=== PATIENT | female | born 1985 | race African-American/Black ===

== ENCOUNTER 2016-09-16 17:00 | Emergency (ER) | payer MEDICAID, OTHER ==
[~2016-09-16] VITALS: Ht 165.1 cm; Wt 84.0 kg
[~2016-09-16 17:00] MED LIST: ACET-3161 PO
[2016-09-16 17:08] VITALS: BP 125/82
== END 2016-09-16 22:26 | disposition home or self-care (01) ==
LOC: ER 20:30
DX: S93.492A Sprain of other ligament of left ankle, initial encounter (principal); S93.692A Other sprain of left foot, initial encounter; X58.XXXA Exposure to other specified factors, initial encounter; J45.909 Unspecified asthma, uncomplicated; Y93.72 Activity, wrestling; Y99.8 Other external cause status; Y92.89 Other specified places as the place of occurrence of the external cause
CPT/HCPCS: 73590; 73610; 73630; 81025; 99284

== ENCOUNTER 2018-01-07 19:28 | Emergency (ER) | payer MEDICAID ==
[~2018-01-07] VITALS: Ht 165.1 cm; Wt 79.0 kg
[2018-01-07] MEDS ORDERED: ACETAMINOPHEN WITH CODEINE 300/30MG TABLET PO ONE (20:45)
[2018-01-07 21:02] LABS: CLARITY URINE CLEAR (CLEAR); COLOR URINE YELLOW (YELLOW); KETONES URINE NEGATIVE (NEGATIVE); LEUKOCYTE ESTERASE URINE TRACE (NEGATIVE); NITRITE URINE NEGATIVE (NEGATIVE); OCCULT BLOOD URINE 3+ (NEGATIVE); PROTEIN URINE NEGATIVE (NEGATIVE); SPECIFIC GRAVITY URINE 1.029 (1.005-1.030)
[2018-01-07 21:33] LABS: BASOPHILS % 0.5 % (0.0-2.0); EOSINOPHILS % 0.3 % (0.0-5.0); HEMATOCRIT. 37.6 % (36.0-48.0); HEMOGLOBIN. 12.3 g/dL (12.0-16.0); LYMPHOCYTES % 31.8 % (20.0-50.0); MEAN CORPUSCULAR VOLUME 79.6 fL (81.0-99.0); MEAN PLATELET VOLUME 8.2 fl (7.4-10.4); MONOCYTES % 7.7 % (2.0-8.0); NEUTROPHILS % 59.7 % (40.0-76.0); PLATELET 380 x1000/uL (130-400); RED BLOOD CELL COUNT 4.72 mill/uL (4.2-5.4); RED CELL DISTRIBUTION WIDTH 16.5 % (11.6-14.6)
[2018-01-07 21:37] LABS: CHLORIDE 107 mEq/L (98-107)
[2018-01-07 21:53] LABS: HCG SCREEN NEGATIVE
[2018-01-07 22:42] VITALS: BP 128/82
== END 2018-01-07 22:46 | disposition home or self-care (01) ==
LOC: ER 20:30
DX: N93.8 Other specified abnormal uterine and vaginal bleeding (principal); J45.909 Unspecified asthma, uncomplicated
CPT/HCPCS: 36415; 80048; 81003; 81025; 84703; 85025; 99284

== ENCOUNTER 2019-02-07 06:41 | Emergency (ER) | payer SELFPAY ==
[~2019-02-07] VITALS: Ht 165.1 cm; Wt 78.0 kg
[2019-02-07] MEDS ORDERED: ACETAMINOPHEN 325MG TABLET PO STA (07:15)
[2019-02-07 08:40] LABS: CLARITY URINE CLOUDY (CLEAR); COLOR URINE YELLOW (YELLOW); KETONES URINE TRACE (NEGATIVE); LEUKOCYTE ESTERASE URINE 1+ (NEGATIVE); NITRITE URINE NEGATIVE (NEGATIVE); OCCULT BLOOD URINE NEGATIVE (NEGATIVE); PH URINE 5.5 (4.5-8.0); PROTEIN URINE NEGATIVE (NEGATIVE); SPECIFIC GRAVITY URINE 1.024 (1.005-1.030); UROBILINOGEN URINE 0.2 E.U./dL (0.2-1.0)
[2019-02-07 09:09] VITALS: BP 142/90
== END 2019-02-07 09:15 | disposition home or self-care (01) ==
LOC: ER 06:41
DX: R51 Headache (principal); F43.22 Adjustment disorder with anxiety; J45.909 Unspecified asthma, uncomplicated
CPT/HCPCS: 81003; 99284